=== PATIENT | female | born 1970 | race Caucasian/White ===

== ENCOUNTER 2018-07-01 06:00 | Day surgery (SDC) | payer OTHER ==
[~2018-07-01] VITALS: Ht 167.6 cm; Wt 70.3 kg
[2018-07-01] MEDS ORDERED: CEFAZOLIN SOD 1 GM/ ISO 50 ML PREMIX IV ONE (07:00)
[2018-07-01] MEDS ORDERED: LR 1,000 ML IV SCH (09:02)
[2018-07-01] MEDS ORDERED: MORPHINE 4 MG/ML INJ. SYRINGE IVP PRN ×3 (09:15)
[2018-07-01] MEDS ORDERED: METOCLOPRAMIDE HCL 10 MG/2 ML VIAL IVP PRN (09:15)
[2018-07-01] MEDS ORDERED: PROPOFOL 200MG/ 20ML VIAL (DIPRIVAN) IV ONE (10:00)
[2018-07-01] MEDS ORDERED: HYDROcodone/ACETAMIN 5-325 MG TAB (NORCO/ VICODIN) PO PRN (10:00)
[2018-07-01] MEDS ORDERED: MIDAZOLAM HCL 5 MG/ML VIAL (VERSED) IV ONE (10:00)
[2018-07-01] MEDS ORDERED: fentaNYL CITRATE/PF 100 MCG/2 ML AMP ONE (10:00)
[2018-07-01] MEDS ORDERED: GLYCOPYRROLATE 0.2 MG/ML VIAL ONE (10:00)
[2018-07-01] MEDS ORDERED: ROCURONIUM BROMIDE 10 MG/ML (ZEMURON) ONE (10:00)
[2018-07-01] MEDS ORDERED: ONDANSETRON HCL 4 MG/2 ML VIAL ONE (10:00)
[2018-07-01] MEDS ORDERED: NS IRRIG SOLN 1000 ML IR ONE (10:00)
[2018-07-01] MEDS ORDERED: NS 1000 ML IV.SOLN IV ONE (10:00)
[2018-07-01] MEDS ORDERED: FUROSEMIDE 20 MG/2 ML VIAL ONE (10:00)
[2018-07-01] MEDS ORDERED: OXYCODONE/ACETAMINOPHEN 5-325 TABLET PO PRN ×2 (10:00→12:15)
[2018-07-01] MEDS ORDERED: KETOROLAC TROMETHAMINE 30 MG VIAL ONE ×2 (10:00→13:19)
[2018-07-01] MEDS ORDERED: DEXTROSE 50% JECT 50 ML DISP.SYRIN ONE (10:00)
[2018-07-01] MEDS ORDERED: LR 1,000 ML IV.SOLN IV ONE (10:00)
[2018-07-01] MEDS ORDERED: SEVOFLURANE 15 MIN GAS INH ONE (10:00)
[2018-07-01] MEDS ORDERED: fentaNYL CITRATE 250 MCG/5 ML AMP ONE (10:00)
[2018-07-01] MEDS ORDERED: BUPIVACAINE /PF 0.25% 30 ML VIAL INJ ONE (10:00)
[2018-07-01] MEDS ORDERED: ROPIVACAINE 0.2% (NAROPIN) PF SOLUTION 100 ML BOTTLE ONE (10:00)
[2018-07-01] MEDS ORDERED: OXYCODONE/ACETAMINOPHEN 5-325 TABLET ONE ×2 (11:17→13:02)
[2018-07-01] MEDS ORDERED: ONDANSETRON HCL 4 MG/2 ML VIAL IVP PRN (12:15)
[2018-07-01 12:59] VITALS: BP_SYST 132
[2018-07-01] MEDS ORDERED: KETOROLAC TROMETHAMINE 30 MG VIAL IVP ONE (13:00)
== END 2018-07-01 15:05 | disposition home or self-care (01) ==
LOC: SDS 06:00 → SMU 06:00 → SDS 15:05
PROVIDERS: ATTEND Specialist
DX: D25.9 Leiomyoma of uterus, unspecified (principal); D49.89 Neoplasm of unspecified behavior of other specified sites; Z79.899 Other long term (current) drug therapy; Z88.8 Allergy status to other drugs, medicaments and biological substances; B97.7 Papillomavirus as the cause of diseases classified elsewhere; F41.9 Anxiety disorder, unspecified
CPT/HCPCS: 58552; 88307; C1727; J0690; J1885; J1940; J2250; J2405; J2704; J2795; J3010 ×2; J3490 ×2; J7030; J7120